=== PATIENT | male | born 1970 | race African-American/Black ===

== ENCOUNTER 2018-10-04 09:13 | Outpatient (CLI) | payer OTHER ==
--- NOTE | 2018-10-04 11:14 | ULT ---
BILATERAL RENAL ULTRASOUND: HISTORY: Chronic renal failure. FINDINGS: The right kidney measures 9.9 cm in length and the left kidney measures 9.2 cm in length. No hydrone phrosis is seen on either side. There is a 3.7 cm cyst arising from the right kidney. Cortical echo genicity and thickness is normal. The urinary bladder is unremarkable with complete emptying of the postvoid exam. IMPRESSION: A 3.7 cm right renal cyst. POS: OFF
== END 2018-10-04 09:14 | disposition home or self-care (01) ==
LOC: BICULT 09:13
PROVIDERS: ATTEND Internal Medicine Nephrology
DX: I12.9 Hypertensive chronic kidney disease with stage 1 through stage 4 chronic kidney disease, or unspecified chronic kidney disease (principal); N18.3 Chronic kidney disease, stage 3 (moderate); N28.1 Cyst of kidney, acquired
CPT/HCPCS: 76770

== ENCOUNTER 2020-12-04 06:34 | Emergency (ER) | payer OTHER ==
[2020-12-04] MEDS ORDERED: Dexamethasone 4 mg/ml Vial ONE (08:22)
[2020-12-04] MEDS ORDERED: Ketorolac Tromethamine 30 MG/ML VIAL ONE (08:22)
== END 2020-12-04 09:13 | disposition home or self-care (01) ==
LOC: ERS 06:34
DX: S86.911A Strain of unspecified muscle(s) and tendon(s) at lower leg level, right leg, initial encounter (principal); I10 Essential (primary) hypertension; F17.210 Nicotine dependence, cigarettes, uncomplicated; Z79.899 Other long term (current) drug therapy; X50.1XXA Overexertion from prolonged static or awkward postures, initial encounter
CPT/HCPCS: 96372; J1100; J1885